=== PATIENT | male | born 1990 | race Caucasian/White ===

== ENCOUNTER 2016-04-11 23:20 | Emergency (ER) | payer BC ==
[2016-04-11] MEDS ORDERED: SODIUM CHLORIDE 0.9% 1,000 ML IV STA (23:45)
[2016-04-11] MEDS ORDERED: RX INFO: IV CONTRAST WAS GIVEN 1 EACH MISC MISCELLANE PRN (23:45)
--- NOTE | 2016-04-11 23:48 | ED ---
Abdominal Pain HPI - General Chief Complaint: Abdominal Pain Stated Complaint: Abd pain Time Seen by Provider: 04/11/16 23:40 Source: patient, RN notes reviewed Mode of arrival: ambulatory Limitations: no limitations - History of Present Illness Initial Comments: 26-year-old male presents to the emergency department with a chief complaint of abdominal pain. Patient states this has been going off and On for about 2 days now. Patient states she's had nausea vomiting and fever with it. Patient states that just hurts in his abdomen. Patient states he has not had much of appetite. Patient denies any changes in bowel or bladder habits. Patient states that he hasn't had the any other symptoms. Patient states that he just feels off. Patient denies any surgeries to the abdomen or any health history. Patient denies any recent shortness of breath, chest pain, back pain, numbness or tingling, dysuria or hematuria, constipation or diarrhea, headaches or visual changes, or any other current symptoms. - Related Data Home Medications Medication Instructions Recorded Confirmed Ibuprofen/Pseudoephedrine HCl 2 tab PO Q6H PRN 04/11/16 04/11/16 [Advil Cold & Sinus Caplet] Previous Rx's Medication Instructions Recorded Ciprofloxacin HCl [Cipro] 500 mg PO Q12HR #14 tablet 04/12/16 Dicyclomine [Bentyl] 10 mg PO TID #20 capsule 04/12/16 Ondansetron Odt [Zofran ODT] 4 mg PO Q8HR PRN #20 tab 04/12/16 metroNIDAZOLE [Flagyl] 500 mg PO TID #21 tab 04/12/16 Allergies Allergy/AdvReac Type Severity Reaction Status Date / Time No Known Allergies Allergy Verified 04/11/16 23:54 Review of Systems ROS Statement: Those systems with pertinent positive or pertinent negative responses have been documented in the HPI. ROS Other: All systems not noted in ROS Statement are negative. Past Medical History Past Medical History: Asthma History of Any Multi-Drug Resistant Organisms: None Reported Past Surgical History: No Surgical Hx Reported Past Psychological History: No Psychological Hx Reported Smoking Status: Current every day smoker Past Alcohol Use History: Occasional Past Drug Use History: None Reported General Exam - General Exam Comments Initial Comments: General: The patient is awake and alert, in no distress, and does not appear acutely ill. Eye: Pupils are equal, round and reactive to light, extra-ocular movements are intact; there is normal conjunctiva bilaterally. No signs of icterus. Ears, nose, mouth and throat: There are moist mucous membranes and no oral lesions. Neck: The neck is supple, there is no tenderness. Cardiovascular: There is a regular rate and rhythm. No murmur, rub or gallop is appreciated. Respiratory: Lungs are clear to auscultation, respirations are non-labored, breath sounds are equal. No wheezes, stridor, rales, or rhonchi. Gastrointestinal: Soft, non-distended, bilateral lower quadrant tenderness of the abdomen without masses or organomegaly noted. There is no rebound or guarding present. No CVA tenderness. Bowel sounds are unremarkable. Back: There is no tenderness to palpation in the midline. There is no obvious deformity. No rashes noted. Musculoskeletal: Normal ROM, no tenderness, There is no pedal edema. There is no calf tenderness or swelling. Sensation intact. Pulses equal bilaterally 2+. Neurological: CN II-XII intact, There are no obvious motor or sensory deficits. Coordination appears grossly intact. Speech is normal. Skin: Skin is warm and dry and no rashes or lesions are noted. Psychiatric: Cooperative, appropriate mood & affect, normal judgment. Limitations: no limitations Course Vital Signs 04/11/16 23:28 Temperature 98.4 F Pulse Rate 66 Respiratory 18 Rate Blood Pressure 129/72 O2 Sat by Pulse 99 Oximetry Medical Decision Making - Medical Decision Making 26-year-old male presents emergency Department chief complaint of abdominal pain. At this time patient's CAT scan lab work is reviewed. Patient does appear to have a mild colitis. At this time we discussed this with the patient. We did discuss that there could be to causes we did discuss that he needs to follow-up with the GI doctor that he has been provided for additional care to further evaluate the colitis. We will put him on antibiotics. We will also give him Bentyl and nausea meds. We did discuss follow-up return parameters. Patient stated that he understood and all his questions were answered. He will be discharged. - Lab Data Result diagrams: 04/12/16 00:00 04/12/16 00:00 Lab Results 04/12/16 04/12/16 04/12/16 Range/Units 00:00 00:00 00:00 WBC 7.2 (3.8-10.6) k/uL RBC 5.23 (4.30-5.90) m/uL Hgb 15.4 (13.0-17.5) gm/dL Hct 46.7 (39.0-53.0) % MCV 89.2 (80.0-100.0) fL MCH 29.5 (25.0-35.0) pg MCHC 33.0 (31.0-37.0) g/dL RDW 12.9 (11.5-15.5) % Plt Count 175 (150-450) k/uL Neutrophils % 53 % Lymphocytes % 32 % Monocytes % 9 % Eosinophils % 3 % Basophils % 0 % Neutrophils # 3.8 (1.3-7.7) k/uL Lymphocytes # 2.3 (1.0-4.8) k/uL Monocytes # 0.6 (0-1.0) k/uL Eosinophils # 0.2 (0-0.7) k/uL Basophils # 0.0 (0-0.2) k/uL Sodium 142 (137-145) mmol/L Potassium 4.0 (3.5-5.1) mmol/L Chloride 102 (98-107) mmol/L Carbon Dioxide 29 (22-30) mmol/L Anion Gap 11 mmol/L BUN 12 (9-20) mg/dL Creatinine 0.70 (0.66-1.25) mg/dL Est GFR (MDRD) Af Amer >60 (>60 ml/min/1.73 sqM) Est GFR (MDRD) Non-Af >60 (>60 ml/min/1.73 sqM) Glucose 98 (74-99) mg/dL Calcium 9.1 (8.4-10.2) mg/dL Total Bilirubin 0.4 (0.2-1.3) mg/dL AST 20 (17-59) U/L ALT 36 (21-72) U/L Alkaline Phosphatase 78 (38-126) U/L Total Protein 6.9 (6.3-8.2) g/dL Albumin 4.0 (3.5-5.0) g/dL Amylase <30 L (30-110) U/L Lipase 18 L (23-300) U/L Urine Color Urine Appearance (Clear) Urine pH (5.0-8.0) Ur Specific [place] (1.001-1.035) Urine Protein (Negative) Urine Glucose (UA) (Negative) Urine Ketones (Negative) Urine Blood (Negative) Urine Nitrate (Negative) Urine Bilirubin (Negative) Urine Urobilinogen (<2.0) mg/dL Ur Leukocyte Esterase (Negative) Urine RBC (0-5) /hpf Urine WBC (0-5) /hpf Amorphous Sediment (None) /hpf Urine Mucus (None) /hpf Influenza Type A RNA Not Detected (Not Detectd) Influenza Type B (PCR) Not Detected (Not Detectd) 04/12/16 Range/Units 00:00 WBC (3.8-10.6) k/uL RBC (4.30-5.90) m/uL Hgb (13.0-17.5) gm/dL Hct (39.0-53.0) % MCV (80.0-100.0) fL MCH (25.0-35.0) pg MCHC (31.0-37.0) g/dL RDW (11.5-15.5) % Plt Count (150-450) k/uL Neutrophils % % Lymphocytes % % Monocytes % % Eosinophils % % Basophils % % Neutrophils # (1.3-7.7) k/uL Lymphocytes # (1.0-4.8) k/uL Monocytes # (0-1.0) k/uL Eosinophils # (0-0.7) k/uL Basophils # (0-0.2) k/uL Sodium (137-145) mmol/L Potassium (3.5-5.1) mmol/L Chloride (98-107) mmol/L Carbon Dioxide (22-30) mmol/L Anion Gap mmol/L BUN (9-20) mg/dL Creatinine (0.66-1.25) mg/dL Est GFR (MDRD) Af Amer (>60 ml/min/1.73 sqM) Est GFR (MDRD) Non-Af (>60 ml/min/1.73 sqM) Glucose (74-99) mg/dL Calcium (8.4-10.2) mg/dL Total Bilirubin (0.2-1.3) mg/dL AST (17-59) U/L ALT (21-72) U/L Alkaline Phosphatase (38-126) U/L Total Protein (6.3-8.2) g/dL Albumin (3.5-5.0) g/dL Amylase (30-110) U/L Lipase (23-300) U/L Urine Color Yellow Urine Appearance Cloudy (Clear) Urine pH 6.5 (5.0-8.0) Ur Specific [place] 1.021 (1.001-1.035) Urine Protein Negative (Negative) Urine Glucose (UA) Negative (Negative) Urine Ketones Negative (Negative) Urine Blood Negative (Negative) Urine Nitrate Negative (Negative) Urine Bilirubin Negative (Negative) Urine Urobilinogen 2.0 (<2.0) mg/dL Ur Leukocyte Esterase Trace H (Negative) Urine RBC 3 (0-5) /hpf Urine WBC 13 H (0-5) /hpf Amorphous Sediment Rare H (None) /hpf Urine Mucus Rare H (None) /hpf Influenza Type A RNA (Not Detectd) Influenza Type B (PCR) (Not Detectd) - Radiology Data Radiology results: report reviewed, image reviewed Disposition Clinical Impression: Colitis Disposition: HOME SELF-CARE Condition: Stable Instructions: Colitis (ED) Additional Instructions: Please use medication as discussed. Please follow up with family doctor if symptoms have not improved over the next two days. Please return to the emergency room if your symptoms increase or worsen or for any other concerns. Prescriptions: Ciprofloxacin HCl [Cipro] 500 mg PO Q12HR #14 tablet Dicyclomine [Bentyl] 10 mg PO TID #20 capsule Ondansetron Odt [Zofran ODT] 4 mg PO Q8HR PRN #20 tab PRN Reason: Nausea metroNIDAZOLE [Flagyl] 500 mg PO TID #21 tab Referrals: None,Stated [Primary Care Provider] - 1-2 days Yoly Redding MD [STAFF PHYSICIAN] - 1-2 days Time of Disposition: 01:22
[2016-04-12 00:08] LABS: Basophils % (A) 0 %; CH 30.6; CHCM 34.5; Eosinophils # (A) 0.2 k/uL (0-0.7); Eosinophils % (A) 3 %; HCT 46.7 % (39.0-53.0); HDW 2.39; HGB 15.4 gm/dL (13.0-17.5); Luc # (Auto) 0.19; Luc % (Auto) 3; Lymphocytes # (A) 2.3 k/uL (1.0-4.8); Lymphocytes % (A) 32 %; MCH 29.5 pg (25.0-35.0); MCV 89.2 fL (80.0-100.0); Mean Platelet Volume 8.1; Monocytes # (A) 0.6 k/uL (0-1.0); Monocytes % (A) 9 %; Neutrophils # (A) 3.8 k/uL (1.3-7.7); Neutrophils % (A) 53 %; RBC 5.23 m/uL (4.30-5.90); RDW 12.9 % (11.5-15.5); WBC 7.2 k/uL (3.8-10.6); WBC (Perox) 7.11
[2016-04-12 00:11] LABS: Amorphous Sediment,Urine Rare /hpf; Appearance,Urine Cloudy (Clear); Bilirubin,Urine Negative (Negative); Glucose,Urine (UA) Negative (Negative); Ketones,Urine Negative (Negative); Leukocyte Esterase,Urine Trace (Negative); Mucus,Urine Rare /hpf; Nitrite,Urine Negative (Negative); PH, Urine 6.5 (5.0-8.0); Particle Count 8645; Protein,Urine Negative (Negative); RBC,Urine 3 /hpf (0-5); Specific Gravity,Urine 1.021 (1.001-1.035); UA Billing (MACRO vs. MICRO) MICRO; WBC,Urine 13 /hpf (0-5)
[2016-04-12 00:17] LABS: ALT 36 U/L (21-72); AST 20 U/L (17-59); Alkaline Phosphatase 78 U/L (38-126); Amylase <30 U/L (30-110); Anion Gap 11 mmol/L; Blood Urea Nitrogen 12 mg/dL (9-20); Calcium 9.1 mg/dL (8.4-10.2); Carbon Dioxide 29 mmol/L (22-30); Chloride 102 mmol/L (98-107); Glucose 98 mg/dL (74-99); Non-African American GFR(MDRD) >60 (>60 ml/min/1.73 sqM); Sodium 142 mmol/L (137-145); Total Bilirubin 0.4 mg/dL (0.2-1.3); Total Protein 6.9 g/dL (6.3-8.2)
--- NOTE | 2016-04-12 00:52 | CT ---
EXAMINATION TYPE: CT abdomen pelvis w con DATE OF EXAM: 04/12/2016 12:26 AM COMPARISON: NONE HISTORY: abd pain, history of diarrhea. CT DLP: 728.30 mGycm Automated exposure control for dose reduction was used. TECHNIQUE: Helical acquisition of images was performed from the lung bases through the pelvis. CONTRAST: Performed without Oral Contrast and with IV Contrast, patient injected with 100 mL of Omnipaque 300. FINDINGS: LUNG BASES: No significant abnormality is appreciated. LIVER/GB: No significant abnormality is appreciated in the liver.. Gallbladder is contracted and is l imited for evaluation. PANCREAS: No significant abnormality is seen. SPLEEN: No significant abnormality is seen. ADRENALS: No significant abnormality is seen. KIDNEYS: No significant abnormality is seen. REPRODUCTIVE ORGANS: Prostate gland appears slightly prominent in size. URINARY BLADDER: No significant abnormality is seen. PELVIC ADENOPATHY: None visualized. OSSEOUS STRUCTURES: No significant abnormality is seen. BOWEL: Visualized appendix showed no significant inflammation in the axial image 77. Large amount of fecal material is noted in the colon with gas and patient is constipated. Mild mucosal thickening is noted in the rectosigmoid colon with mild colitis changes. Small bowel loops showed mild fluid and g as distention. There is mild to moderate colonic diverticulosis is noted. No significant abscess or free fluid colle ctions are noted in the abdomen and pelvis. IMPRESSION: 1. MILD COLITIS CHANGES ARE SUGGESTED IN THE RECTOSIGMOID COLON. 2. PATIENT IS CONSTIPATED. THERE IS MILD TO MODERATE COLONIC DIVERTICULOSIS. 3. VISUALIZED APPENDIX SHOWED NO SIGNIFICANT INFLAMMATION.
[2016-04-12 02:01] VITALS: BP 133/63; PULSE 63; RESP 16; TEMP 98.1
== END 2016-04-12 02:01 | disposition home or self-care (01) ==
LOC: EC 23:20
DX: K52.9 Noninfective gastroenteritis and colitis, unspecified (principal); K57.30 Diverticulosis of large intestine without perforation or abscess without bleeding; K59.00 Constipation, unspecified; F17.200 Nicotine dependence, unspecified, uncomplicated
CPT/HCPCS: 99284; 96360; 36415; 80053; 82150; 83690; 85025; 81001; 87040; 87086; 87502; 74177; Q9967

== ENCOUNTER 2016-06-29 17:27 | Emergency (ER) | payer BC ==
[2016-06-29 17:33] VITALS: BP 146/85; PULSE 90; RESP 18; TEMP 98.7
--- NOTE | 2016-06-29 18:14 | ED ---
Abdominal Pain HPI - General Chief Complaint: Abdominal Pain Stated Complaint: abd pain Time Seen by Provider: 06/29/16 17:51 Source: patient, RN notes reviewed Mode of arrival: ambulatory Limitations: no limitations - History of Present Illness Initial Comments: Patient is a 26-year-old male with chief complaint of multiple episodes of diarrhea for the past few months. Patient reports he was diagnosed with colitis and followed up with a GI specialist. Patient reports that he was prescribed Bentyl and hasn't been taking it over the past few weeks it has been not helping. Patient states that he's had her no blood in his diarrhea. 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 Patient reports that he has had no fever or chills. He denies any specific abdominal pain. He states that it will flareup and then will subside. Patient states that he followed up with a GI specialist a few weeks ago however they just reiterated that he needs to take the medication and possibly trying elimination diet. Patient reports that he does not watch what he is eating.Patient denies any recent fever, chills, shortness of breath, chest pain, back pain, abdominal pain, nausea vomiting, numbness or tingling, dysuria or hematuria, constipation headaches or visual changes, or any other current symptoms - Related Data Home Medications Medication Instructions Recorded Confirmed Acetaminophen with Codeine 1 tab PO Q4H PRN 06/29/16 06/29/16 [Tylenol w/codeine #3] Hydrocodone/Acetaminophen [[place] 1 tab PO Q6HR PRN 06/29/16 06/29/16 5-325] Previous Rx's Medication Instructions Recorded Dicyclomine [Bentyl] 10 mg PO TID #20 capsule 06/29/16 Loperamide HCl [Loperamide] 2 mg PO DAILY #20 capsule 06/29/16 Allergies Allergy/AdvReac Type Severity Reaction Status Date / Time No Known Allergies Allergy Verified 06/29/16 17:59 Review of Systems ROS Statement: Those systems with pertinent positive or pertinent negative responses have been documented in the HPI. ROS Other: All systems not noted in ROS Statement are negative. Past Medical History Past Medical History: Asthma Additional Past Medical History / Comment(s): IBS History of Any Multi-Drug Resistant Organisms: None Reported Past Surgical History: No Surgical Hx Reported Past Psychological History: No Psychological Hx Reported Smoking Status: Current every day smoker Past Alcohol Use History: Occasional Past Drug Use History: None Reported, Marijuana General Exam Limitations: no limitations General appearance: alert, in no apparent distress Head exam: Present: atraumatic, normocephalic, normal inspection Eye exam: Present: normal appearance, PERRL, EOMI. Absent: scleral icterus, conjunctival injection, periorbital swelling ENT exam: Present: normal exam, mucous membranes moist Neck exam: Present: normal inspection. Absent: tenderness, meningismus, lymphadenopathy Respiratory exam: Present: normal lung sounds bilaterally. Absent: respiratory distress, wheezes, rales, rhonchi, stridor Cardiovascular Exam: Present: regular rate, normal rhythm, normal heart sounds. Absent: systolic murmur, diastolic murmur, rubs, gallop, clicks GI/Abdominal exam: Present: soft, normal bowel sounds. Absent: distended, tenderness, guarding, rebound, rigid Extremities exam: Present: normal inspection, full ROM, normal capillary refill. Absent: tenderness, pedal edema, joint swelling, calf tenderness Back exam: Present: normal inspection Neurological exam: Present: alert Psychiatric exam: Present: normal affect, normal mood Skin exam: Present: warm, dry, intact, normal color. Absent: rash Course Vital Signs 06/29/16 17:31 Temperature 98.7 F Pulse Rate 90 Respiratory 18 Rate Blood Pressure 146/85 O2 Sat by Pulse 98 Oximetry Medical Decision Making - Medical Decision Making Patient is a 26-year-old male with a one month intermittent diarrhea. Patient was diagnosed with colitis. Patient has no fever or chills he denies any significant abdominal pain. Patient reports that his diarrhea has interfered with his work today. He states that the nasal be worse than others. Patient states that he hasn't been taking his Bentyl as prescribed. It is reiterated that he needs to take his mental and diarrhea this food intake with the diarrhea. I also prescribed the patient Imodium for severe diarrhea days. Patient agrees with the treatment plan will comply. Patient has no fever or abdominal tenderness, denies any blood in his stools. Disposition Clinical Impression: Irritable bowel syndrome with diarrhea Disposition: HOME SELF-CARE Condition: Good Instructions: Irritable Bowel Syndrome (ED), Nutrition Tips for Relief of Diarrhea (ED) Additional Instructions: Patient advised to keep a diary of food intake and diarrhea episodes. Take Bentyl as prescribed as well as use Imodium with severe episodes of diarrhea. Return to the emergency department if any alarming signs or symptoms occur. Prescriptions: Dicyclomine [Bentyl] 10 mg PO TID #20 capsule Loperamide HCl [Loperamide] 2 mg PO DAILY #20 capsule Referrals: Le Sorenson MD [STAFF PHYSICIAN] - 1-2 days Yoly Redding MD [STAFF PHYSICIAN] - 1-2 days Time of Disposition: 18:13
== END 2016-06-29 18:25 | disposition home or self-care (01) ==
LOC: EC 17:27
DX: K58.0 Irritable bowel syndrome with diarrhea (principal); F17.200 Nicotine dependence, unspecified, uncomplicated
CPT/HCPCS: 99283

== ENCOUNTER 2022-11-30 22:56 | Observation (INO) | payer BC, OTHER ==
[2022-11-30] MEDS ORDERED: SODIUM CHLORIDE 0.9% 1,000 ML IV STA (23:10)
[2022-11-30] MEDS ORDERED: SODIUM CHLORIDE 0.9% 500 ML 500 ML IV STA (23:10)
--- NOTE | 2022-11-30 23:10 | ED ---
Alcohol HPI - General Stated Complaint: ETOH Time Seen by Provider: 11/30/22 23:06 Source: RN notes reviewed, old records reviewed Mode of arrival: EMS Limitations: no limitations - History of Present Illness Initial Comments: This 32-year-old male to the emergency department for evaluation. Patient is presenting for altered mental status with suspension for significant alcohol intoxication coming from a wedding tonight. MD Complaint: alcohol intoxication Last Drink: just LEGAL REFEREE -: minute(s) Previous Visits for Alcohol Intoxication?: No Recent Trauma: No Associated Symptoms: denies other symptoms Treatments Prior to Arrival: none Chronic Alcohol Use: No - Related Data Home Medications Medication Instructions Recorded Confirmed Acetaminophen with Codeine 1 tab PO Q4H PRN 06/29/16 06/29/16 [Tylenol w/codeine #3] Hydrocodone/Acetaminophen [[place] 1 tab PO Q6HR PRN 06/29/16 06/29/16 5-325] Previous Rx's Medication Instructions Recorded Dicyclomine [Bentyl] 10 mg PO TID #20 capsule 06/29/16 Loperamide HCl [Loperamide] 2 mg PO DAILY #20 capsule 06/29/16 Allergies Allergy/AdvReac Type Severity Reaction Status Date / Time No Known Allergies Allergy Verified 06/29/16 17:59 Review of Systems ROS Statement: Those systems with pertinent positive or pertinent negative responses have been documented in the HPI. ROS Other: All systems not noted in ROS Statement are negative. Past Medical History Past Medical History: Asthma Additional Past Medical History / Comment(s): IBS History of Any Multi-Drug Resistant Organisms: None Reported Past Surgical History: No Surgical Hx Reported Past Psychological History: No Psychological Hx Reported Past Alcohol Use History: Occasional Past Drug Use History: None Reported, Marijuana General Exam General appearance: appears intoxicated Head exam: Present: atraumatic, normocephalic, normal inspection Eye exam: Present: normal appearance, PERRL, EOMI. Absent: scleral icterus, conjunctival injection, periorbital swelling ENT exam: Present: normal exam, mucous membranes moist Neck exam: Present: normal inspection. Absent: tenderness, meningismus, lymphadenopathy Respiratory exam: Present: normal lung sounds bilaterally. Absent: respiratory distress, wheezes, rales, rhonchi, stridor Cardiovascular Exam: Present: regular rate, normal rhythm, normal heart sounds. Absent: systolic murmur, diastolic murmur, rubs, gallop, clicks GI/Abdominal exam: Present: soft, normal bowel sounds. Absent: distended, tenderness, guarding, rebound, rigid Extremities exam: Present: normal inspection, full ROM, normal capillary refill. Absent: tenderness, pedal edema, joint swelling, calf tenderness Back exam: Present: normal inspection Neurological exam: Present: alert, oriented X3, CN II-XII intact Psychiatric exam: Present: normal affect, normal mood Skin exam: Present: warm, dry, intact, normal color. Absent: rash Course Vital Signs 11/30/22 11/30/22 23:13 23:30 Temperature 97.4 F L Pulse Rate 68 Respiratory 18 18 Rate Blood Pressure 122/82 O2 Sat by Pulse 99 Oximetry - Reevaluation(s) Reevaluation #1: 12/01/22 01:38 Medical record is reviewed Reevaluation #2: 12/01/22 01:38 Patient remains somnolent to ER stay Patient has no improvement with Narcan Reevaluation #3: 12/01/22 01:38 Patient informed results questions answered Reevaluation #4: 12/01/22 01:38 Was pt. sent in by a medical professional or institution (, PA, PRINTER SLOTTER OPERATOR, urgent care, hospital, or retirement...) When possible be specific @ -no Did you speak to anyone other than the patient for history (EMS, parent, family, police, friend...)? What history was obtained from this source @ -no Did you review nursing and triage notes (agree or disagree)? Why? @ -agree Are old charts reviewed (outside hosp., previous admission, EMS record, old EKG, old radiological studies, urgent care reports/EKG's, retirement records)? Report findings @ -yes Differential Diagnosis (chest pain, altered mental status, abdominal pain women, abdominal pain men, vaginal bleeding, weakness, fever, dyspnea, syncope, headache, dizziness, GI bleed, back pain, seizure, CVA, palpatations, mental health, musculoskeletal)? @ -prior EKG interpreted by me (3pts min.). @ -yes X-rays interpreted by me (1pt min.). @ -yes CT interpreted by me (1pt min.). @ -no U/S interpreted by me (1pt. min.). @ -no What testing was considered but not performed or refused? (CT, X-rays, U/S, labs)? Why? @ -none What meds were considered but not given or refused? Why? @ -none Did you discuss the management of the patient with other professionals (professionals i.e. , PA, PRINTER SLOTTER OPERATOR, lab, RT, psych nurse, licensed social worker, dry cure worker, teacher, safety and security officer, onsite case manager)? Give summary @ -no Was smoking cessation discussed for >3mins.? @ -no Was critical care preformed (if so, how long)? @ -no Were there social determinants of health that impacted care today? How? (Ho melessness, low income, unemployed, alcoholism, drug addiction, transportation, low edu. Level, literacy, decrease access to med. care, longterm, rehab)? @ -none Was there de-escalation of care discussed even if they declined (Discuss DNR or withdrawal of care, Hospice)? DNR status @ -no What co-morbidities impacted this encounter? (DM, HTN, Smoking, COPD, CAD, Cancer, CVA, ARF, Chemo, Hep., AIDS, mental health diagnosis, sleep apnea, morbid obesity)? @ -none Was patient admitted / discharged? Hospital course, mention meds given and route, prescriptions, significant lab abnormalities, going to OR and other pertinent info. @ - Undiagnosed new problem with uncertain prognosis? @ -no Drug Therapy requiring intensive monitoring for toxicity (Heparin, Nitro, Insulin, Cardizem)? @ -no Were any procedures done? @ -no Diagnosis/symptom? @ - Acute, or Chronic, or Acute on Chronic? @ -Acute Uncomplicated (without systemic symptoms) or Complicated (systemic symptoms)? @ -Complicated Side effects of treatment? @ -no Exacerbation, Progression, or Severe Exacerbation? @ -exacerbation Poses a threat to life or bodily function? How? (Chest pain, [place], [place], pneumonia, PE, COPD, DKA, ARF, appy, cholecystitis, CVA, Diverticulitis, Homicidal, Suicidal, threat to staff... and all critical care pts) @ -yes Reevaluation #5: 12/01/22 01:38 Differential Altered Mental Status: Hypoglycemia, DKA, hypercapnia, ETOH, overdose, CO poisoning, trauma, myxedema coma, HTN encephalopathy, infection, encephalitis, psychosis, intercranial hemorrhage, hepatic encephalopathy, meningitis, CVA, this is not meant to be an all-inclusive list - Consultations Consultation #1: Spoke with sound who agrees to admit this patient Medical Decision Making - Medical Decision Making 32 male to the emergency department for evaluation. Patient presents today for evaluation regards to altered mental status and patient does have significantly severe alcohol intoxication. - Lab Data Result diagrams: 11/30/22 23:25 11/30/22 23:25 Lab Results 11/30/22 11/30/22 Range/Units 23:25 23:25 WBC 10.2 (3.8-10.6) k/uL RBC 5.07 (4.30-5.90) m/uL Hgb 15.0 (13.0-17.5) gm/dL Hct 44.4 (39.0-53.0) % MCV 87.7 (80.0-100.0) fL MCH 29.5 (25.0-35.0) pg MCHC 33.6 (31.0-37.0) g/dL RDW 12.7 (11.5-15.5) % Plt Count 216 (150-450) k/uL MPV 7.6 Neutrophils % 60 % Lymphocytes % 30 % Monocytes % 5 % Eosinophils % 1 % Basophils % 0 % Neutrophils # 6.1 (1.3-7.7) k/uL Lymphocytes # 3.1 (1.0-4.8) k/uL Monocytes # 0.5 (0-1.0) k/uL Eosinophils # 0.1 (0-0.7) k/uL Basophils # 0.0 (0-0.2) k/uL Sodium 148 H (137-145) mmol/L Potassium 3.4 L (3.5-5.1) mmol/L Chloride 107 (98-107) mmol/L Carbon Dioxide 27 (22-30) mmol/L Anion Gap 14 mmol/L BUN 7 L (9-20) mg/dL Creatinine 0.78 (0.66-1.25) mg/dL Est GFR (CKD-EPI)AfAm >90 (>60 ml/min/1.73 sqM) Est GFR (CKD-EPI)NonAf >90 (>60 ml/min/1.73 sqM) Glucose 114 H (74-99) mg/dL Calcium 9.3 (8.4-10.2) mg/dL Total Bilirubin 0.4 (0.2-1.3) mg/dL AST 29 (17-59) U/L ALT 25 (4-49) U/L Alkaline Phosphatase 96 (38-126) U/L Total Protein 8.2 (6.3-8.2) g/dL Albumin 4.6 (3.5-5.0) g/dL Lipase 38 (23-300) U/L Salicylates <1.0 mg/dL Acetaminophen <10.0 ug/mL Serum Alcohol 402 H* mg/dL Disposition Clinical Impression: Alcoholic intoxication Disposition: ADMITTED IP TO THIS HOSP Condition: Fair Is patient prescribed a controlled substance at d/c from ED?: No Referrals: None,Stated [Primary Care Provider] - 1-2 days Time of Disposition: 01:30
[2022-11-30] MEDS ORDERED: NALOXONE 0.4 MG/ML 1 ML VIAL IVP STA (23:20)
[2022-11-30 23:39] LABS: Basophils % (A) 0 %; Eosinophils # (A) 0.1 k/uL (0-0.7); Eosinophils % (A) 1 %; HCT 44.4 % (39.0-53.0); Lymphocytes # (A) 3.1 k/uL (1.0-4.8); Lymphocytes % (A) 30 %; MCH 29.5 pg (25.0-35.0); MCHC 33.6 g/dL (31.0-37.0); MCV 87.7 fL (80.0-100.0); Mean Platelet Volume 7.6; Monocytes # (A) 0.5 k/uL (0-1.0); Monocytes % (A) 5 %; Neutrophils # (A) 6.1 k/uL (1.3-7.7); Neutrophils % (A) 60 %; Platelet Count 216 k/uL (150-450); RBC 5.07 m/uL (4.30-5.90); RDW 12.7 % (11.5-15.5); WBC 10.2 k/uL (3.8-10.6)
[2022-11-30 23:42] LABS: ALT 25 U/L (4-49); AST 29 U/L (17-59); Acetaminophen <10.0 ug/mL; African American GFR (CKD) >90 (>60 ml/min/1.73 sqM); Albumin 4.6 g/dL (3.5-5.0); Alkaline Phosphatase 96 U/L (38-126); Anion Gap 14 mmol/L; Blood Urea Nitrogen 7 mg/dL (9-20); Calcium 9.3 mg/dL (8.4-10.2); Carbon Dioxide 27 mmol/L (22-30); Chloride 107 mmol/L (98-107); Glucose 114 mg/dL (74-99); Lipase 38 U/L (23-300); Non-African American GFR(CKD) >90 (>60 ml/min/1.73 sqM); Potassium 3.4 mmol/L (3.5-5.1); Salicylate <1.0 mg/dL; Sodium 148 mmol/L (137-145); Total Bilirubin 0.4 mg/dL (0.2-1.3); Total Protein 8.2 g/dL (6.3-8.2)
[2022-11-30 23:53] LABS: Alcohol 402 mg/dL
[2022-12-01] MEDS ORDERED: NALOXONE 0.4 MG/ML 1 ML VIAL IV PRN (01:33)
[2022-12-01] MEDS: SODIUM CHLORIDE 0.9% 1,000 ML IV SCH ×2 (02:22→10:41)
[2022-12-01] MEDS ORDERED: THIAMINE 100 MG/ML 2 ML VIAL IM STA (04:15)
--- NOTE | 2022-12-01 04:15 | P.HPIM ---
History of Present Illness H&P Date: 12/01/22 Chief Complaint: altered mental status 32-year-old male no significant past medical history He comes in accompanied by a friend who reports that they were at their wedding alliance party and he believes that the patient had too much to drink the made the decision to bring him to the hospital for evaluation after he passed out and hit his head. Patient was intoxicated does not wake up to stimulation but moves his head and arms purposefully. Friend at bedside denies any drugs of the alliance party. No reports of any seizure-like activity. No further history about the patient health as available at this time review of systems unable to obtain due to patient mental status on exam Constitutional: No acute distress, moves his head in all 4 extremities purposefully localizes pain stimulation Eyes: Anicteric sclerae, moist conjunctiva, Pupils equal round dilated reactive to light ENMT: NC/AT Oropharynx clear, no erythema, or exudates Neck: Supple, no masses, or JVD No carotid bruits No thyromegaly Lungs: Clear to auscultation Clear to percussion Normal respiratory effort, no accessory muscle use Cardiovascular: Heart regular in rate and rhythm, No murmurs, gallops, or rubs No peripheral edema Abdominal: Soft Nontender, no guarding, rebound or rigidity Abdomen moving with respiration Normoactive bowel sounds No hepatomegaly, No splenomegaly No palpable mass No abdominal wall hernia noted Skin: Normal temperature, tone, texture, turgor No induration No subcutaneous nodules No rash, lesions No ulcers Extremities: No digital cyanosis No clubbing Pedal pulses intact and symmetrical Radial pulses intact and symmetrical No calf tenderness Psychiatric: Sleeping intoxicated with alcohol Neuro moving all 4 extremities purposefully otherwise unable to do neurologic assessment at this time due to patient mental status Lymphatics: no palpable cervical or supraclavicular lymph nodes Past Medical History Past Medical History: Asthma Additional Past Medical History / Comment(s): IBS History of Any Multi-Drug Resistant Organisms: None Reported Past Surgical History: No Surgical Hx Reported Past Psychological History: No Psychological Hx Reported Past Alcohol Use History: Occasional Past Drug Use History: None Reported, Marijuana Medications and Allergies Home Medications Medication Instructions Recorded Confirmed Type Acetaminophen with Codeine 1 tab PO Q4H PRN 06/29/16 06/29/16 History [Tylenol w/codeine #3] Dicyclomine [Bentyl] 10 mg PO TID #20 capsule 06/29/16 Rx Hydrocodone/Acetaminophen [[place] 1 tab PO Q6HR PRN 06/29/16 06/29/16 History 5-325] Loperamide HCl [Loperamide] 2 mg PO DAILY #20 capsule 06/29/16 Rx Allergies Allergy/AdvReac Type Severity Reaction Status Date / Time No Known Allergies Allergy Verified 06/29/16 17:59 Physical Exam Vitals: Vital Signs Temp Pulse Resp BP Pulse Ox 11/30/22 23:30 18 11/30/22 23:13 97.4 F L 68 18 122/82 99 Intake and Output 11/30/22 11/30/22 12/01/22 14:59 22:59 06:59 Other: Weight 95.254 kg Results CBC & Chem 7: 11/30/22 23:25 11/30/22 23:25 Labs: Abnormal Lab Results - Last 24 Hours (Table) 11/30/22 Range/Units 23:25 Sodium 148 H (137-145) mmol/L Potassium 3.4 L (3.5-5.1) mmol/L BUN 7 L (9-20) mg/dL Glucose 114 H (74-99) mg/dL Serum Alcohol 402 H* mg/dL Assessment and Plan Assessment: 32-year-old male no significant past medical history comes in after passing out and hitting his head at a wedding alliance party I discussed the case with the ED doctor and accepted the admission for acute alcohol intoxication with blood alcohol level of 402 with anticipated length of stay less than than 2 midnights Acute severe alcohol intoxication Acute metabolic encephalopathy Check CT of the head secondary to report of falling at the alliance party Neurochecks Fall precautions IV fluid hydration with normal saline Thiamine IM Continue with thiamine by mouth daily Blood work overall unremarkable showing hemoglobin of 15 white count 10.2 Sodium 148 potassium 3.4 BUN 7 creatinine 0.78 Tylenol level less than 10, salicylate level negative Blood alcohol level elevated 402 Urine drug screen still pending Full code DVT prophylaxis mechanical
--- NOTE | 2022-12-01 05:32 | CT ---
EXAMINATION TYPE: CT brain isaías wo con DATE OF EXAM: 12/01/2022 COMPARISON: 11/10/2010 HISTORY: 32-year-old male pain after Fall from intoxication. CT DLP: 1905.8 mGycm Automated exposure control for dose reduction was used. Technique: Examination of the head was done in axial plane without intravenous contrast. Coronal and sagittal reconstructions performed. CT of the cervical spine was obtained in axial plane without intravenous injection of contrast mater ial. Coronal and sagittal reformatted images were obtained from the axial views for evaluation of f ractures, spinal alignment and canal. FINDINGS: Head: There is no evidence of acute intracranial hemorrhage, acute ischemic changes, mass, mass-effect, or extra-axial fluid collection. There is no effacement of cerebral sulci or basal subarachnoid cister ns. There is no hydrocephalus. There is no midline shift. Amin-white matter distinction is preserv ed. Moderate mucosal thickening ethmoid air cells. Mastoid air cells are pneumatized. Orbits and globes a re intact. Cervical spine: The alignment of the cervical spine is normal on coronal and reformatted images. There is no cranial vertebral abnormality. Fracture of the cervical spine is not seen. Assessment of the spinal canal fro m C7-T1 and below is limited due to artifact from patient's shoulders. Otherwise, there is no evidenc e of focal disk herniation. There is no central spinal canal stenosis along the visualized portions. Sagittal and coronal reformatted images confirm above findings. COMBINED IMPRESSION: 1. No acute intracranial abnormality seen. 2. No acute fracture or malalignment of the cervical spine.
[2022-12-01] MEDS ORDERED: THIAMINE 100 MG TAB PO SCH (09:00)
[2022-12-01] MEDS ORDERED: PANTOPRAZOLE 40 MG/10 ML VIAL IV SCH (09:00)
--- NOTE | 2022-12-01 10:15 | P.DS ---
Providers Date of admission: 12/01/22 01:33 Expected date of discharge: 12/01/22 Attending physician: Monserrat Amin MD Primary care physician: Stated None Hospital Course: Discharge Diagnosis: Alcohol intoxication Altered mental status secondary to acute alcohol intoxication Hospital Course: Patient is a very pleasant 32-year-old male with a past medical history reported of asthma. He presented to the emergency department with a friend secondary to concerns that he drank too much and passed out falling over striking his head. Patient underwent full evaluation and upon arrival to our facility. Vital signs were obtained and stable with blood pressure 122/82, heart rate 68, respiratory rate 18, temp 97.4F, and SpO2 of 98% on room air. CTA head and cervical spine negative for acute process. Labs completed and reviewed. CBC unremarkable. BMP revealing hypernatremia with sodium 148, mild hypokalemia with potassium of 3.4, BUN is 7, and glucose of 114. Alcohol level was significantly elevated at 402. Patient was admitted under our services. Patient given aggressive IV fluid hydration. Patient's mentation significantly improved. This morning patient alert and oriented to person, place, time, and situation. Patient's friend arrived at bedside to drive patient home. Patient requesting discharge, patient reports he felt very embarrassed over drinking too much at the wedding. Patient medically stable at this time and is alert and oriented. Patient's friend at bedside to drive him home. Patient discharged at this time. Patient seen and examined at bedside. Vital signs reviewed and stable. General: Nontoxic, no distress and appears stated age. Derm: Skin warm and dry, normal coloration for ethnicity. Head: Atraumatic, normocephalic and symmetric. Eyes: EOMs intact, no lid lag, and anicteric sclera Mouth: no lip lesions, mucus membranes moist Cardiovascular: regular rate and rhythm with normal S1S2, no murmur, positive posterior tibial pulses bilaterally, and cap refill < 2 seconds. Lungs: Respirations even, regular, and unlabored on room air. Lungs CTA bilaterally, no rhonchi, no rales, no wheezing, and no accessory muscle usage. Abdominal: soft, nontender to palpation, no guarding, no appreciable organomegaly Ext: ROM intact. No gross muscle atrophy, no edema, no contractures Neuro: Speech clear, face symmetrical and CN II-XII grossly intact with no noted focal neuro deficits Psych: Alert and oriented to person, place, time, and situation. Appropriate and pleasant affect. A total of 29 minutes of time were spent preparing this complex discharge summary. Pt was discharged on 12/01/22 at 10:13 AM. Patient was seen independently by Nurse Practitioner. This document was prepared using [employer] dictation software. Please allow for errors in [employer] operator while rare they do occur. Vikash Lira NP rendered care for this patient independently, reviewed the findings and plan as documented in the note above. I did not physically speak with or examine the patient on this date. Patient Condition at Discharge: Stable Plan - Discharge Summary New Discharge Prescriptions: No Action Acetaminophen with Codeine [Tylenol w/codeine #3] 1 tab PO Q4H PRN PRN Reason: Pain Hydrocodone/Acetaminophen [[place] 5-325] 1 tab PO Q6HR PRN PRN Reason: Pain Loperamide HCl [Loperamide] 2 mg PO DAILY #20 capsule Dicyclomine [Bentyl] 10 mg PO TID #20 capsule Discharge Medication List Acetaminophen with Codeine [Tylenol w/codeine #3] 1 tab PO Q4H PRN 06/29/16 [History] Dicyclomine [Bentyl] 10 mg PO TID #20 capsule 06/29/16 [Rx] Hydrocodone/Acetaminophen [[place] 5-325] 1 tab PO Q6HR PRN 06/29/16 [History] Loperamide HCl [Loperamide] 2 mg PO DAILY #20 capsule 06/29/16 [Rx] Follow up Appointment(s)/Referral(s): Garfield Vila MD [REFERRING] - 1 Week (strongly recommend establishing care with a PCP and here is a great local one available.) Patient Instructions/Handouts: Alcohol Intoxication (DC) Activity/Diet/Wound Care/Special Instructions: Activity: As tolerated. Diet: Regular diet. Special Instructions: Thank you for allowing us to participate in your care, it was truly a pleasure having you for our patient!!! Discharge Disposition: HOME SELF-CARE
[2022-12-01 10:53] VITALS: BP 125/88; PULSE 85; RESP 18; TEMP 97.6
== END 2022-12-01 10:56 | disposition home or self-care (01) ==
LOC: EC 22:56 → 3SCARD 12-01 01:33
PROVIDERS: ADMIT Internal Medicine; ATTEND Internal Medicine
DX: F10.129 Alcohol abuse with intoxication, unspecified (principal); Y90.8 Blood alcohol level of 240 mg/100 ml or more; G93.41 Metabolic encephalopathy; E87.0 Hyperosmolality and hypernatremia; E87.6 Hypokalemia; J45.909 Unspecified asthma, uncomplicated; Z79.899 Other long term (current) drug therapy
CPT/HCPCS: 96361 ×2; 96372; 96374; 99285; 36415; 80053; 83690; 85025; 80143; 80320; 80179; 72125; 70450; G0378; J2310; J3411